=== PATIENT | male | born 1995 | race Caucasian/White ===

== ENCOUNTER 2016-12-29 08:11 | Emergency (ER) | payer OTHER ==
[~2016-12-29] VITALS: Ht 177.8 cm; Wt 75.0 kg
[2016-12-29] MEDS ORDERED: KETOROLAC 30 MG/ML VIAL (J1885) IV ONE (08:30)
[2016-12-29] MEDS ORDERED: NAPR500T PO (09:37)
[2016-12-29] MEDS ORDERED: VALI2TAB PO (09:38)
[2016-12-29 09:54] VITALS: BP 111/71
== END 2016-12-29 09:55 | disposition home or self-care (01) ==
LOC: M ED 08:11
DX: S33.9XXA Sprain of unspecified parts of lumbar spine and pelvis, initial encounter (principal); X50.0XXA Overexertion from strenuous movement or load, initial encounter; Y92.89 Other specified places as the place of occurrence of the external cause; Y93.89 Activity, other specified; Y99.8 Other external cause status
CPT/HCPCS: 96374; 96375; 99284; J1885; J3360

== ENCOUNTER 2017-03-20 07:22 | Emergency (ER) | payer OTHER | END 2017-03-20 10:01 | disposition home or self-care (01) | LOC: M ED 07:22 | DX: R07.89 Other chest pain (principal); Z82.49 Family history of ischemic heart disease and other diseases of the circulatory system | CPT/HCPCS: 71046 ==